=== PATIENT | female | born 1995 | race Hispanic/Latino ===

== ENCOUNTER 2020-11-28 13:48 | Inpatient (IN) | payer MEDICAID ==
[~2020-11-28] VITALS: Ht 167.6 cm; Wt 99.3 kg
[2020-11-28 14:13] VITALS: BP 115/75
[2020-11-28 14:40] LABS: BASOPHILS % (AUTO) 0.3 % (0.0-5.0); EOSINOPHILS % (AUTO) 1.3 % (0.0-8.0); HEMATOCRIT 41.6 % (36-48); LYMPHOCYTES % (AUTO) 19.2 % (21.0-51.0); MEAN CORPUSCULAR HEMOGLOBIN 24.9 pg (27.0-33.0); MEAN CORPUSCULAR HGB CONC 31.3 g/dL (32.0-36.0); MEAN CORPUSCULAR VOLUME 79.5 fL (79-99); MONOCYTES % (AUTO) 6.5 % (3.0-13.0); NEUTROPHILS % (AUTO) 71.9 % (40.0-77.0); PLATELET COUNT (AUTO) 204 K/uL (130-400); RED BLOOD CELL COUNT(AUTO) 5.23 MIL/uL (4.00-5.50); RED CELL DISTRIBUTION WIDTH 17.5 % (11.0-15.5); WHITE BLOOD COUNT (AUTO) 10.2 K/uL (4.8-10.8)
[2020-11-28 14:48] LABS: INR 1.1 (0.85-1.15); PROTHROMBIN TIME 11.9 SEC (9.6-11.6)
[2020-11-28 15:10] LABS: AMPHET/METH SCREEN,URINE NEGATIVE (NEGATIVE); BARBITURATE SCREEN, URINE NEGATIVE (NEGATIVE); BENZODIAZEPINES SCREEN,URINE NEGATIVE (NEGATIVE); CANNABINOID SCREEN,URINE NEGATIVE (NEGATIVE); COCAINE SCREEN,URINE NEGATIVE (NEGATIVE); OPIATE SCREEN,URINE NEGATIVE (NEGATIVE); PHENCYCLIDINE SCREEN,URINE NEGATIVE (NEGATIVE)
[2020-11-28 15:21] LABS: CREATININE 0.9 mg/dL (0.5-1.5); POTASSIUM 4.3 mmol/L (3.5-5.1)
[2020-11-28 15:24] LABS: ALBUMIN 4.4 g/dL (3.5-5.0)
[2020-11-28 15:53] VITALS: BP 132/53
[2020-11-28 15:54] LABS: BILIRUBIN,TOTAL 0.2 mg/dL (0.2-1.0); TOTAL PROTEIN, SERUM 8.8 g/dL (6.0-8.3)
[2020-11-28] MEDS ORDERED: 0.9%NACL 1000ML 1,000 ML IV ONE (16:30)
[2020-11-28 17:21] VITALS: BP 121/77
[2020-11-28] MEDS ORDERED: 0.9%NACL 1000ML 1,000 ML IV SCH (18:00)
== END 2020-11-28 18:59 | disposition left against medical advice (07) | DRG 351 ==
LOC: EDH 13:48 → EDHIP 13:49
PROVIDERS: ADMIT Internal Medicine; ATTEND Internal Medicine
DX: M62.82 Rhabdomyolysis (principal); F31.9 Bipolar disorder, unspecified; F41.9 Anxiety disorder, unspecified
CPT/HCPCS: 36415; 80053; 80305; 81025; 82550; 84484; 85025; 85610; G0378; J7030

== ENCOUNTER 2022-09-16 13:34 | Emergency (ER) | payer MEDICAID ==
[~2022-09-16] VITALS: Ht 170.2 cm; Wt 81.6 kg
[2022-09-16] MEDS ORDERED: 0.9%NACL 1000ML 1,000 ML IV ONE ×2 (15:00→20:54)
[2022-09-16 15:04] LABS: BASOPHILS % (AUTO) 0.2 % (0.0-5.0); EOSINOPHILS % (AUTO) 1.4 % (0.0-8.0); HEMATOCRIT 39.3 % (36-48); LYMPHOCYTES % (AUTO) 24.2 % (21.0-51.0); MEAN CORPUSCULAR HEMOGLOBIN 28.1 pg (27.0-33.0); MEAN CORPUSCULAR HGB CONC 32.8 g/dL (32.0-36.0); MEAN CORPUSCULAR VOLUME 85.6 fL (79-99); MONOCYTES % (AUTO) 11.3 % (3.0-13.0); NEUTROPHILS % (AUTO) 62.5 % (40.0-77.0); PLATELET COUNT (AUTO) 189 K/uL (130-400); RED BLOOD CELL COUNT(AUTO) 4.59 MIL/uL (4.00-5.50); RED CELL DISTRIBUTION WIDTH 15.1 % (11.0-15.5); WHITE BLOOD COUNT (AUTO) 11.4 K/uL (4.8-10.8)
[2022-09-16 15:13] LABS: CREATININE 0.9 mg/dL (0.5-1.5); POTASSIUM 3.9 mmol/L (3.5-5.1)
[2022-09-16 15:14] LABS: AMPHET/METH SCREEN,URINE NEGATIVE (NEGATIVE); BARBITURATE SCREEN, URINE NEGATIVE (NEGATIVE); BENZODIAZEPINES SCREEN,URINE NEGATIVE (NEGATIVE); CANNABINOID SCREEN,URINE NEGATIVE (NEGATIVE); COCAINE SCREEN,URINE NEGATIVE (NEGATIVE); OPIATE SCREEN,URINE NEGATIVE (NEGATIVE); PHENCYCLIDINE SCREEN,URINE NEGATIVE (NEGATIVE)
[2022-09-16 15:18] LABS: HCG,QUALITATIVE URINE NEGATIVE (NEGATIVE)
[2022-09-16 15:27] LABS: ALBUMIN 4.1 g/dL (3.5-5.0); TOTAL PROTEIN, SERUM 7.9 g/dL (6.0-8.3)
[2022-09-16 15:38] LABS: APPEARANCE,URINE CLEAR (CLEAR); BILIRUBIN,URINE NEGATIVE (NEGATIVE); COLOR,URINE YELLOW (YELLOW); GLUCOSE, URINE (UA) NEGATIVE (NEGATIVE); KETONES,URINE NEGATIVE (NEGATIVE); LEUKOCYTE ESTERASE ,URINE NEGATIVE Leu/uL (NEGATIVE); NITRATE,URINE NEGATIVE (NEGATIVE); OCCULT BLOOD,URINE NEGATIVE (NEGATIVE); PROTEIN,URINE NEGATIVE (NEGATIVE); UROBILINOGEN,URINE 0.2 mg/dL (0.2-1.0)
[2022-09-16 15:46] LABS: MUCUS,URINE RARE LPF (None Seen); SQUAMOUS EPITHELIAL CELL,UR RARE /HPF (0-2); WBC,URINE 0-1 /HPF (0-1)
[2022-09-16] MEDS ORDERED: ACETAMINOPHEN 500 MG TABLET ONE (21:06)
[2022-09-16] MEDS ORDERED: ACETAMINOPHEN 500 MG TABLET PO ONE (21:30)
[2022-09-16] MEDS ORDERED: DONEPEZIL HCL 5 MG TAB ONE (23:45)
[2022-09-16] MEDS ORDERED: ZOLPIDEM TARTRATE 5 MG TAB ONE (23:45)
[2022-09-16] MEDS ORDERED: HALOPERIDOL INJ 5 MG/ML VIAL ONE (23:50)
[2022-09-17] MEDS ORDERED: HALOPERIDOL INJ 5 MG/ML VIAL IV SCH
[2022-09-17 01:18] VITALS: BP 128/82
[2022-09-17] MEDS ORDERED: 0.9%NACL 1000ML 1,000 ML IV ONE (01:30)
== END 2022-09-17 01:24 | disposition home or self-care (01) ==
LOC: EDH 13:34
DX: R74.8 Abnormal levels of other serum enzymes (principal); F32.A Depression, unspecified
CPT/HCPCS: 99285; 96374; 96361; 76856; 82550 ×2; 80053; 80305; 85025; 81001; 81025; 36415; J7030; J1630